=== PATIENT | female | born 1935 | race Caucasian/White ===

== ENCOUNTER 2018-07-27 18:30 | Emergency (ER) | payer MEDICARE, BC ==
[2018-07-27] MEDS ORDERED: Ketorolac 60 MG/2 ML SDV IM ONE (18:31)
[2018-07-27] MEDS ORDERED: traMADol 50 MG Tab PO ONE ×2 (18:31→19:33)
--- NOTE | 2018-07-27 19:37 | EDM.PDOC ---
ED HPI GENERAL MEDICAL PROBLEM - General Chief Complaint: General Stated Complaint: HIGH BP Time Seen by Provider: 07/27/18 19:10 Source of Information: Reports: Patient History Limitations: Reports: No Limitations - History of Present Illness INITIAL COMMENTS - FREE TEXT/NARRATIVE: 83-year-old female who was transferred over to the emergency department from walk-in clinic after some workup and been done who presented complaining of right distal upper arm/elbow pain which began last night at approximately 8:30 PM. She reports that she has had pain off and on in the right arm for some time (she is very vague about this and states it has been for a long time). At 8:30 PM last night, she was getting up from the couch and noticed increased pain in her right distal arm and elbow area that is a sharp pain. It is worse with movement and with palpation. She does not remember any other injury. She has normal sensation in her right hand. Her use of her right arm is somewhat less because of the pain. She rates the pain as a 9/10 at its worst and a 7/10 now. In walk-in clinic they gave her Toradol 60 mg IM and she has had some reduction in her pain from this. They also did a chemistry profile which was normal except for blood sugar 117 and a troponin which was negative. They did an EKG which showed atrial fibrillation with a rate of 86 and a normal axis. There was no old EKG for comparison. There is no current of injury or ischemia. She denies any chest pain. She denies any shortness of breath. She's had no abdominal pain. She's had no nausea or vomiting. She apparently had a repair of her mitral valve that was done transvenously and reports that she has no history of coronary artery disease with no stents and no CA in the past. She was transferred over to the emergency department secondary to an elevated blood pressure. She also has no headache or vision problems. There are no other associated signs or symptoms. There are no other modifying factors. Onset: Other (8:30 PM last night) Duration: Constant (Constant since 8:30 PM last night. 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: Other (see below) (She was given Toradol in the walk- in clinic prior to coming over here.) RT UPPER ARM PAIN Pain Score (Numeric/FACES): 6 - Related Data Allergies Allergy/AdvReac Type Severity Reaction Status Date / Time No Known Allergies Allergy Verified 07/27/18 19:27 Home Meds: Home Meds Alendronate Sodium [Fosamax] 70 mg PO ASDIRECTED 07/01/13 [History] Calc/D3/Mag/Zn/Cardroom Attendant/Heri/[place] [Calcium 600 MG Plus Vit D] 1 tab PO DAILY [History] Docusate Sodium [Colace] 200 mg PO DAILY 07/01/13 [History] Furosemide [Lasix] 40 mg PO BID 07/01/13 [History] Metoprolol Succinate 25 mg PO BID 07/01/13 [History] Metoprolol Succinate 50 mg PO BID 07/01/13 [History] Multivitamin with Minerals [Multiple Vitamin] 1 tab PO DAILY 07/01/13 [History] PEG 400/Propylene Glycol [Systane Lubricant] 1 drop EYEBOTH ASDIRECTED PRN 07/01 [History] Simvastatin [Zocor] 40 mg PO DAILY 07/01/13 [History] Warfarin Sodium [Jantoven] 3 mg PO DAILY 07/27/18 [History] Past Medical History HEENT History: Reports: Impaired Vision (Cataracts status post surgery) Cardiovascular History: Reports: Afib, High Cholesterol, Hypertension, Other ( See Below) Other Cardiovascular History: VALVE SURGERY, LEAKY VALVE Respiratory History: Reports: Other (See Below) (Obstructive sleep apnea on CPAP ) Gastrointestinal History: Reports: GERD Hematologic History: Reports: Anticoagulation Therapy (On Coumadin) - Past Surgical History HEENT Surgical History: Reports: Cataract Surgery (Bilateral cataract surgery), Tonsillectomy Cardiovascular Surgical History: Reports: Other (See Below) (Percutaneous transluminal valve surgery.) GI Surgical History: Reports: Colonoscopy, EGD Musculoskeletal Surgical History: Reports: Hip Replacement (Bilateral total hip replacements) Social & Family History - Tobacco Use Smoking Status *Q: Never Smoker - Caffeine Use Caffeine Use: Reports: Coffee - Alcohol Use Alcohol Use History: Yes Alcohol Use Frequency: Weekly (2 drinks weekly) - Living Situation & Occupation Living situation: Reports: Occupation: Retired Social History Comment: She is here with her . They live independently. ED ROS GENERAL - Review of Systems Review Of Systems: See Below Constitutional: Reports: No Symptoms HEENT: Reports: No Symptoms Respiratory: Reports: No Symptoms Cardiovascular: Reports: No Symptoms Endocrine: Reports: No Symptoms GI/Abdominal: Reports: No Symptoms : Reports: No Symptoms Musculoskeletal: Reports: Arm Pain (Right distal upper arm and elbow pain as above.) Skin: Reports: No Symptoms Neurological: Reports: No Symptoms Hematologic/Lymphatic: Reports: Easy Bleeding (On chronic anticoagulation with Coumadin) Immunologic: Reports: No Symptoms ED EXAM, GENERAL - Physical Exam Exam: See Below Exam Limited By: No Limitations General Appearance: Alert, WD/WN, Mild Distress (With pain in her right upper extremity.) Eye Exam: Bilateral Eye: EOMI, Normal Inspection Ears: Normal External Exam, Hearing Grossly Normal Nose: Normal Inspection, Normal Mucosa Throat/Mouth: Normal Inspection, Normal Voice, No Airway Compromise Head: Atraumatic, Normocephalic Neck: Normal Inspection, Supple, Non-Tender, Full Range of Motion Respiratory/Chest: No Respiratory Distress, Lungs Clear, Normal Breath Sounds, No Accessory Muscle Use, Chest Non-Tender Cardiovascular: Normal Peripheral Pulses, No JVD, Irregularly Irregular (With controlled rate) Peripheral Pulses: 2+: Radial (L), Radial (R) GI/Abdominal: Normal Bowel Sounds, Soft, Non-Tender, No Organomegaly, No Mass Back Exam: Normal Inspection Extremities: No Pedal Edema, Normal Capillary Refill, Other (Tender to palpation over the distal humerus area just at the elbow on the right.) Neurological: Alert, Oriented, CN II-XII Intact, No Motor/Sensory Deficits Psychiatric: Normal Affect Skin Exam: Warm, Dry, Intact, Normal Color, No Rash Lymphatic: No Adenopathy EKG INTERPRETATION EKG Date: 07/27/18 Time: 16:40 Rhythm: A-Fib Rate (Beats/Min): 86 [place]: Normal P-Wave: Absent QRS: Normal ST-T: Other (nonspecific) QT: Prolonged Comparison: NA - No Prior EKG EKG Interpretation Comments: Atrial fibrillation with a rate of 86. No old EKG for comparison but the patient reports a history of A. fib. There is a prolonged QT. The axis is normal. There are nonspecific ST-T changes. There are no current of injury or ischemia. Course - Vital Signs Last Recorded V/S: Last Vital Signs Temp 37.1 C 07/27/18 18:30 Pulse 80 07/27/18 19:55 Resp 18 07/27/18 19:55 BP 179/100 H 07/27/18 19:55 Pulse Ox 97 07/27/18 19:55 - Orders/Labs/Meds Orders: Active Orders 24 hr Category Date Time Status Elbow 2V Rt [CR] Stat Exams 07/27/18 19:32 Taken Labs: Laboratory Tests 07/27/18 Range/Units 20:10 PT 26.1 H (8.7-11.1) INR 2.72 H (0.89-1.13) Meds: Medications Discontinued Medications Generic Name Dose Route Start Last Admin Trade Name Freq PRN Reason Stop Dose Admin Tramadol HCl 50 mg 07/27/18 19:33 07/27/18 19:47 Ultram PO 07/27/18 19:34 50 mg ONETIME ONE Administration - Radiology Interpretation Free Text/Narrative:: Right shoulder x-ray showed no definite acute abnormality. Right elbow x-ray showed no fracture or malalignment and no effusion. - Re-Assessments/Exams Free Text/Narrative Re-Assessment/Exam: 07/27/18 20:46: Patient's blood pressure remains elevated at 170/100. She has not taken her metoprolol or her Lasix tonight. Her blood tests are reassuring including a negative troponin. Her EKG shows A. fib without any current of injury or ischemia. Her pain appears to be musculoskeletal. I see no evidence of infection or inflammation. She was given Toradol and walk-in clinic and tramadol here with some relief of her pain. I'm going to place her in a sling to rest her arm and prevent her from any strenuous activity with her right arm. She should continue to do range of motion with the elbow and shoulder and wrist. She should plan on following up with Dr. Azar this next week. I have told them to check her blood pressure daily and keep a record so that she can take it with her when she sees Dr. Azar. I will send her home with a starter pack of tramadol to take as needed for moderate to severe pain. Departure - Departure Time of Disposition: 20:50 Disposition: Home, Self-Care 01 Condition: Good Clinical Impression: Right arm pain, Musculoskeletal pain of right upper extremity Hypertension Qualifiers: Hypertension type: essential hypertension Qualified Code(s): I10 - Essential ( primary) hypertension - Discharge Information Referrals: Gilson Azar MD [Primary Care Provider] - Forms: ED Department Discharge Additional Instructions: Your blood work and EKG were reassuring and showed no evidence of a heart attack or a heart related issue. Your blood pressure was elevated and you need to check your blood pressure daily and keep a record of this and plan on following up with Dr. Azar the middle of this coming week. Use the sling for support and to prevent you from doing any strenuous use with your right arm. You should do range of motion with your right shoulder, elbow and wrist as you were shown in the emergency department. You may take Tylenol 1000 mg by mouth every 6 hours as needed for pain. Medication as prescribed for more severe pain (tramadol). Back to the emergency department for chest pain, trouble breathing, unrelenting vomiting, redness or swelling in the right arm or any other concerning sign or symptom. - My Orders Last 24 Hours: My Active Orders 07/27/18 19:32 Elbow 2V Rt [CR] Stat - Assessment/Plan Last 24 Hours: My Active Orders 07/27/18 19:32 Elbow 2V Rt [CR] Stat
[2018-07-27 20:28] VITALS: BP 179/100
--- NOTE | 2018-07-30 12:17 | CR ---
INDICATION: Right elbow pain, no trauma. RIGHT ELBOW: Four views of the right elbow revealed minimal degenerative changes at the medial elbow joint compartment with no evidence of an acute fracture, dislocation, or other significant bone or joint abnormality. IMPRESSION: Minimal osteoarthritis medial elbow joint compartment. MTDD
== END 2018-07-27 21:00 | disposition home or self-care (01) ==
LOC: FB.ED 18:30
DX: I10 Essential (primary) hypertension (principal); M25.511 Pain in right shoulder; M19.011 Primary osteoarthritis, right shoulder; I25.10 Atherosclerotic heart disease of native coronary artery without angina pectoris
CPT/HCPCS: 36415; 73030; 73070; 80069; 84484; 85610; 93010; 99283; 99284; A9270; J1885; 30905